=== PATIENT | female | born 1955 | race Caucasian/White ===

== ENCOUNTER → 2016-12-22 | Outpatient (CLI) | payer OTHER ==
[2016-12-22 09:19] LABS: CHLORIDE,CL 99 mmol/L (98-110); SODIUM,NA 132 mmol/L (136-146)
== END ==
LOC: MW.CHFP 08:38
PROVIDERS: ATTEND Emergency Medicine
DX: E11.9 Type 2 diabetes mellitus without complications (principal); Z79.4 Long term (current) use of insulin; E78.00 Pure hypercholesterolemia, unspecified; E79.0 Hyperuricemia without signs of inflammatory arthritis and tophaceous disease
CPT/HCPCS: 36415; 80053; 80061; 83036; 84550

== ENCOUNTER 2018-09-06 14:00 | Emergency (ER) | payer OTHER ==
--- NOTE | 2018-09-06 14:28 | EDM.PDOC ---
ED HPI GENERAL MEDICAL PROBLEM - General Chief Complaint: Flank Pain Stated Complaint: LEFT SIDE PAIN Time Seen by Provider: 09/06/18 14:28 Source of Information: Reports: Patient History Limitations: Reports: No Limitations - History of Present Illness INITIAL COMMENTS - FREE TEXT/NARRATIVE: HISTORY AND PHYSICAL: History of present illness: Patient is a 63-year-old female here with complaint of left lower abdominal pain. She states it started this morning, was a 9/10 and she took an oxycodone that she had left over from a gout attack last year. Currently rates it as a 7/ 10. Pain is sharp and radiates to her back. She denies nausea, vomiting, diarrhea, constipation, dysuria, hematuria, fevers, chills, chest pain, SOB. Past medical history of CAD, hypertension, diabetes. Review of systems: As per history of present illness and below otherwise all systems reviewed and negative. Past medical history: As per history of present illness and as reviewed below otherwise noncontributory. Surgical history: As per history of present illness and as reviewed below otherwise noncontributory. Social history: No reported history of drug or alcohol abuse. Family history: As per history of present illness and as reviewed below otherwise noncontributory. Physical exam: General: Patient sitting comfortably in no acute distress and nontoxic appearing HEENT: Atraumatic, normocephalic, pupils reactive, negative for conjunctival pallor or scleral icterus, mucous membranes moist, throat clear, neck supple, nontender, trachea midline. No meningeal signs. Lungs: Clear to auscultation, breath sounds equal bilaterally, chest nontender. Heart: S1S2, regular, negative for clicks, rubs, or overt murmur. Abdomen: Mild bilateral lower abdominal tenderness to palpation. Soft, nondistended. Negative for masses or hepatosplenomegaly. Negative for costovertebral tenderness. Pelvis: Stable nontender. Genitourinary: Deferred. Rectal: Deferred. Extremities: Atraumatic, negative for cords or calf pain. Neurovascular unremarkable. Neuro: Awake, alert, oriented. Cranial nerves II through XII unremarkable. Cerebellum unremarkable. Motor and sensory unremarkable throughout. Exam nonfocal. Notes: Diagnostics: CBC, CMP, lipase, UA Therapeutics: 1L normal saline IV Prescriptions: Macrobid Impression: UTI Plan: 1. Take antibiotic as instructed, drink plenty of fluids. 2. Follow up with primary care provider 3. Return to ED as needed as discussed Definitive disposition and diagnosis as appropriate pending reevaluation and review of above. Left Lower Abdominal Pain Score (Numeric/FACES): 8 - Related Data Allergies Allergy/AdvReac Type Severity Reaction Status Date / Time codeine Allergy unknown Unverified 09/06/18 14:17 Home Meds: Home Meds Allopurinol [Zyloprim] 100 mg PO DAILY 09/06/18 [History] Brimonidine Tartrate [Brimonidine Tartrate 0.2% Ophth Soln] 1 drop EYEBOTH DAILY 09/06/18 [History] Clopidogrel [Plavix] 75 mg PO DAILY 09/06/18 [History] Furosemide 20 mg PO DAILY 09/06/18 [History] Insulin Aspart [NovoLOG] 100 units SQ TIDMEALS 09/06/18 [History] Insulin Glargine,Hum.Rec.Anlog [Basaglar Kwikpen U-100] 70 units SQ BEDTIME [History] Latanoprost 1 drop EYEBOTH DAILY 09/06/18 [History] Levothyroxine [Synthroid] 1 tab PO DAILY 09/06/18 [History] Rosuvastatin [Crestor] 1 tab PO DAILY 09/06/18 [History] Spironolactone [Aldactone] 1 tab PO DAILY 09/06/18 [History] Timolol Maleate 1 drop EYEBOTH BID 09/06/18 [History] oxyCODONE HCl/Acetaminophen [Oxycodone-Acetaminophen 5-325] 1 tab PO ASDIRECTED PRN 09/06/18 [History] Past Medical History HEENT History: Reports: Impaired Vision, Other (See Below) Other HEENT History: diabetic retinopathy Cardiovascular History: Reports: High Cholesterol, Hypertension, HI, Stents Respiratory History: Reports: Sleep Apnea Musculoskeletal History: Reports: Gout Endocrine/Metabolic History: Reports: Diabetes, Type II - Past Surgical History GI Surgical History: Reports: Cholecystectomy Social & Family History - Tobacco Use Smoking Status *Q: Never Smoker ED ROS GENERAL - Review of Systems Review Of Systems: ROS reveals no pertinent complaints other than HPI. ED EXAM, GI/ABD - Physical Exam Exam: See Below (see dictation) Course - Vital Signs Last Recorded V/S: Last Vital Signs Temp 96.5 F 09/06/18 14:11 Pulse 77 09/06/18 16:16 Resp 20 09/06/18 14:11 BP 120/50 L 09/06/18 16:16 Pulse Ox 96 09/06/18 16:16 - Orders/Labs/Meds Orders: Active Orders 24 hr Category Date Time Status CULTURE URINE [RM] Stat Lab 09/06/18 15:04 Received Labs: Laboratory Tests 09/06/18 09/06/18 09/06/18 Range/Units 14:22 14:22 15:04 WBC 9.00 (4.0-11.0) K/uL RBC 4.41 (4.30-5.90) M/uL Hgb 13.5 (12.0-16.0) g/dL Hct 38.3 (36.0-46.0) % MCV 86.8 (80.0-98.0) fL MCH 30.6 (27.0-32.0) pg MCHC 35.2 (31.0-37.0) g/dL RDW Std Deviation 43.9 (28.0-62.0) fl RDW Coeff of Charlie 14 (11.0-15.0) % Plt Count 98 L (150-400) K/uL MPV 10.70 (7.40-12.00) fL Neut % (Auto) 75.5 (48.0-80.0) % Lymph % (Auto) 17.3 (16.0-40.0) % [place] % (Auto) 5.9 (0.0-15.0) % Eos % (Auto) 1.1 (0.0-7.0) % Baso % (Auto) 0.2 (0.0-1.5) % Neut # (Auto) 6.8 H (1.4-5.7) K/uL Lymph # (Auto) 1.6 (0.6-2.4) K/uL [place] # (Auto) 0.5 (0.0-0.8) K/uL Eos # (Auto) 0.1 (0.0-0.7) K/uL Baso # (Auto) 0.0 (0.0-0.1) K/uL Nucleated RBC % 0.0 /100WBC Nucleated RBCs # 0 K/uL Sodium 134 L (136-145) mmol/L Potassium 4.6 (3.5-5.1) mmol/L Chloride 100 (98-107) mmol/L Carbon Dioxide 26.6 (21.0-32.0) mmol/L BUN 25 H (7.0-18.0) mg/dL Creatinine 1.6 H (0.6-1.0) mg/dL Est Cr Clr Drug Dosing 30.67 mL/min Estimated GFR (MDRD) 32.5 ml/min Glucose 338 H (74-106) mg/dL Calcium 9.8 (8.5-10.1) mg/dL Total Bilirubin 0.6 (0.2-1.0) mg/dL AST 36 (15-37) IU/L ALT 48 (14-63) IU/L Alkaline Phosphatase 98 (46-116) U/L Total Protein 9.4 H (6.4-8.2) g/dL Albumin 3.4 (3.4-5.0) g/dL Globulin 6.0 H (2.6-4.0) g/dL Albumin/Globulin Ratio 0.6 L (0.9-1.6) Lipase 345 (73-393) U/L Urine Color YELLOW Urine Appearance CLEAR Urine pH 5.5 (5.0-8.0) Ur Specific [place] 1.025 (1.001-1.035) Urine Protein 30 H (NEGATIVE) mg/dL Urine Glucose (UA) 250 H (NEGATIVE) mg/dL Urine Ketones NEGATIVE (NEGATIVE) mg/dL Urine Occult Blood TRACE-INTACT H (NEGATIVE) Urine Nitrite NEGATIVE (NEGATIVE) Urine Bilirubin NEGATIVE (NEGATIVE) Urine Urobilinogen 0.2 (<2.0) EU/dL Ur Leukocyte Esterase MODERATE H (NEGATIVE) Urine RBC 0-2 (0-2/HPF) Urine WBC 20-28 (0-5/HPF) Ur Epithelial Cells FEW (NONE-FEW) Amorphous Sediment FEW (NEGATIVE) Urine Bacteria 1+ H (NEGATIVE) Urine Mucus FEW (NONE-MOD) Meds: Medications Discontinued Medications Generic Name Dose Route Start Last Admin Trade Name Freq PRN Reason Stop Dose Admin Sodium Chloride 1,000 mls @ 999 mls/hr 09/06/18 14:29 09/06/18 14:37 Normal Saline IV 09/06/18 15:29 999 mls/hr STAT ONE Administration Departure - Departure Time of Disposition: 16:41 Disposition: Home, Self-Care 01 Condition: Good Clinical Impression: UTI (urinary tract infection) - Discharge Information Referrals: Noman Durand MD [Primary Care Provider] - Forms: ED Department Discharge Additional Instructions: The following information is given to patients seen in the emergency department who are being discharged to home. This information is to outline your options for follow-up care. We provide all patients seen in our emergency department with a follow-up referral. The need for follow-up, as well as the timing and circumstances, are variable depending upon the specifics of your emergency department visit. If you don't have a primary care physician on staff, we will provide you with a referral. We always advise you to contact your personal physician following an emergency department visit to inform them of the circumstance of the visit and for follow-up with them and/or the need for any referrals to a consulting specialist. The emergency department will also refer you to a specialist when appropriate. This referral assures that you have the opportunity for follow-up care with a specialist. All of these measure are taken in an effort to provide you with optimal care, which includes your follow-up. Under all circumstances we always encourage you to contact your private physician who remains a resource for coordinating your care. When calling for follow-up care, please make the office aware that this follow-up is from your recent emergency room visit. If for any reason you are refused follow-up, please contact the [facility] at and asked to speak to the emergency department charge nurse. [facility] [address] [place] [id number] 1. Take antibiotic as instructed, drink plenty of fluids. 2. Follow up with primary care provider 3. Return to ED as needed as discussed - My Orders Last 24 Hours: My Active Orders 09/06/18 15:04 CULTURE URINE [RM] Stat - Assessment/Plan Last 24 Hours: My Active Orders 09/06/18 15:04 CULTURE URINE [RM] Stat
[2018-09-06] MEDS ORDERED: Sodium Chloride 0.9% 1,000 ML IV ONE (14:29)
--- NOTE | 2018-09-06 16:13 | CT ---
CT of the abdomen and pelvis without contrast. HISTORY: Pain TECHNIQUE: Axial CT images were obtained of the abdomen and pelvis without contrast. Coronal and sagittal reconstructions obtained. Comparison: 01/05/2011. FINDINGS: Mild atelectasis within the lung bases. There is mild to moderate fatty infiltration of the liver. The adrenal glands, and pancreas appear unremarkable for noncontrast examination. The spleen is mildly enlarged. Cystectomy. There is no bulky retroperitoneal lymphadenopathy. No abdominal ascites. Moderate subcutaneous stranding is noted within the supraumbilical region and less so within the infraumbilical region. There are no calcifications noted within the kidneys or along the courses of the ureters bilaterally. The large and small bowel are normal in caliber without evidence of obstruction. The appendix appears normal. Mild sigmoid diverticulosis without evidence of diverticulitis. There is no bulky pelvic lymphadenopathy. No free fluid. No free air. The urinary bladder is minimally filled. The visualized osseous structures appear normal. IMPRESSION: 1. Mild to moderate fatty infiltration of liver. 2. Mild splenomegaly. 3. No acute findings within the abdomen or pelvis. 4. Mild diverticulosis. 5. Subcutaneous stranding within the supraumbilical region and less so within the infraumbilical region. This could represent a chronic inflammatory response however correlate for cellulitis.
== END 2018-09-06 17:06 | disposition home or self-care (01) ==
LOC: MW.ED 14:00
DX: N39.0 Urinary tract infection, site not specified (principal); I10 Essential (primary) hypertension; E11.9 Type 2 diabetes mellitus without complications; I25.2 Old myocardial infarction; Z95.5 Presence of coronary angioplasty implant and graft; M10.9 Gout, unspecified; Z79.4 Long term (current) use of insulin; Z79.899 Other long term (current) drug therapy; Z90.49 Acquired absence of other specified parts of digestive tract; Z88.5 Allergy status to narcotic agent
CPT/HCPCS: 36415; 74176; 80053; 81001; 83690; 85025; 87086; 96360; 99284; J7040

== ENCOUNTER 2022-10-04 01:48 | Emergency (ER) | payer OTHER, MEDICARE ==
[2022-10-04] MEDS ORDERED: DOBUTamine/Dextrose 5%-Water 250 MG/250 ML BAG IV SCH (02:30)
[2022-10-04 03:11] LABS: CARBON DIOXIDE,CO2 14.1 mmol/L (21.0-32.0); POTASSIUM,K 5.9 mmol/L (3.5-5.1)
[2022-10-04] MEDS ORDERED: Calcium Gluconate 10% 1 GM/10 ML SDV IVPUSH ONE (03:15)
[2022-10-04] MEDS ORDERED: Insulin Regular, Human 100 Units/ML 10 ML Vial IVPUSH ONE (03:15)
[2022-10-04] MEDS ORDERED: Phytonadione 5 MG in Sodium Chloride 0.9% 50 ML IV ONE (04:34)
[2022-10-04] MEDS ORDERED: HUM PROTHROMBIN CPLX(PCC)4FACT 2,000 UNIT, Factor IX Complex Human 500 UNIT IV ONE ×2 (04:37)
[2022-10-04] MEDS ORDERED: Ondansetron 4 MG/2 ML SDV IVPUSH ONE (06:34)
== END 2022-10-04 07:00 ==
LOC: MW.ED 01:48
DX: R57.8 Other shock (principal); I48.91 Unspecified atrial fibrillation; I10 Essential (primary) hypertension; E78.00 Pure hypercholesterolemia, unspecified; I25.2 Old myocardial infarction; E11.9 Type 2 diabetes mellitus without complications; Z88.5 Allergy status to narcotic agent; Z79.02 Long term (current) use of antithrombotics/antiplatelets; Z79.4 Long term (current) use of insulin; Z79.899 Other long term (current) drug therapy; Z20.822 Contact with and (suspected) exposure to COVID-19
CPT/HCPCS: 36415; 36430; 71045; 80053; 82009; 82803; 83605; 83735; 83880; 84484; 85025; 85610; 85730; 86850; 86900; 86901; 86920; 87040; 87077; 87154; 87186; 87635; 93005; 96365; 96367; 96375; 99291; 99292; J0610; J1250; J1815; J2405; J3430; J3490; J7168; P9016; 36556; 93010; 99285; U0002

== ENCOUNTER 2023-09-19 16:10 | Emergency (ER) | payer OTHER ==
[2023-09-19 17:42] LABS: BASOPHILS ABSOLUTE AUTO 0.04 K/uL (0.00-0.20); BASOPHILS PERCENT AUTO 0.6 % (0.0-1.0); EOSINOPHILS ABSOLUTE AUTO 0.09 K/uL (0.00-0.45); EOSINOPHILS PERCENT AUTO 1.3 % (0.0-6.0); HEMATOCRIT 42.9 % (37.0-47.0); IMMATURE GRAN ABSOLUTE AUTO 0.02 K/uL (0.00-0.05); IMMATURE GRAN PERCENT AUTO 0.3 % (0.0-0.4); LYMPHOCYTES ABSOLUTE AUTO 1.17 K/uL (1.00-4.80); LYMPHOCYTES PERCENT AUTO 16.9 % (24.0-44.0); MEAN CORPUSCULAR HEMOGLOBIN 29.7 pg (28.0-32.0); MEAN CORPUSCULAR HGB CONC 32.6 g/dL (32.0-36.0); MEAN CORPUSCULAR VOLUME 91.1 fL (83.0-99.0); MEAN PLATELET VOLUME 11.4 fL (9.4-12.3); MONOCYTES ABSOLUTE AUTO 0.58 K/uL (0.00-0.80); MONOCYTES PERCENT AUTO 8.4 % (0.0-8.0); NEUTROPHILS ABSOLUTE AUTO 5.03 K/uL (1.80-7.70); NEUTROPHILS PERCENT AUTO 72.5 % (41.0-71.0); PLATELET COUNT,PLT 99 K/uL (150-400); RED BLOOD CELL COUNT 4.71 M/uL (4.10-5.30); WHITE BLOOD CELL COUNT,WBC 6.93 K/uL (3.9-11.3)
[2023-09-19 17:55] LABS: INR 1.4 (0.86-1.11)
[2023-09-19 18:29] LABS: A/G RATIO 0.6 (0.9-1.6); ALBUMIN 3.4 g/dL (3.4-5.0); BILIRUBIN TOTAL 1.5 mg/dL (0.2-1.0); CALCIUM 9.5 mg/dL (8.5-10.1); CARBON DIOXIDE,CO2 26.8 mmol/L (21.0-32.0); CREATININE 2.1 mg/dL (0.6-1.0); EST CRCL DRUG DOSING (CG) 21.83 mL/min; POTASSIUM,K 3.6 mmol/L (3.5-5.1); PROTEIN TOTAL,TP 9.2 g/dL (6.4-8.2)
== END 2023-09-19 19:15 | disposition home or self-care (01) ==
LOC: MW.ED 16:10
DX: J90 Pleural effusion, not elsewhere classified (principal); E11.9 Type 2 diabetes mellitus without complications; I10 Essential (primary) hypertension; E78.00 Pure hypercholesterolemia, unspecified; I25.2 Old myocardial infarction; Z79.4 Long term (current) use of insulin; Z79.01 Long term (current) use of anticoagulants; Z79.899 Other long term (current) drug therapy; Z88.5 Allergy status to narcotic agent
CPT/HCPCS: 36415; 71046; 80053; 85025; 85610; 93005; 93010; 99283; 99285